=== PATIENT | male | born 1970 | race Caucasian/White ===

== ENCOUNTER 2019-11-03 16:39 | Emergency (ER) | payer OTHER ==
[2019-11-03 17:03] VITALS: RESP 16
[2019-11-03] MEDS ORDERED: LIDOCAINE 1% INJ 10MG/ML (20 ML MDV) SQ ONE (17:09)
[2019-11-03] MEDS ORDERED: DIPH,PERTUS(ACELL)TETVAC-LF 0.5 ML VIAL IM ONE (17:13)
--- NOTE | 2019-11-03 17:46 | XR ---
EXAMINATION TYPE: XR knee complete LT DATE OF EXAM: 11/03/2019 COMPARISON: None HISTORY: Laceration posterior knee TECHNIQUE: Three-view left knee FINDINGS: No acute fractures are evident. There is soft tissue injury of the posterior knee. Joint sp aces are preserved. No radiopaque foreign bodies are evident. IMPRESSION: 1. Soft tissue injury posterior knee. 2. No acute osseous abnormality.
[2019-11-03] MEDS ORDERED: CEPHALEXIN 500MG STARTER PACK 4 CAP BTL PO STA (18:14)
[2019-11-03] MEDS ORDERED: ACET/COD 300 MG/30 MG STARTER PACK 6 TAB BTL PO STA (18:15)
--- NOTE | 2019-11-03 18:16 | ED ---
Wound/Laceration HPI - General Chief Complaint: Wound/Laceration Stated Complaint: Left Leg Laceration Time Seen by Provider: 11/03/19 17:04 Source: patient Mode of arrival: ambulatory Limitations: no limitations - History of Present Illness Initial Comments: 79-year-old male presenting today for chief complaint of left posterior knee laceration. Patient states he found ladder when he fell he states he slid down the ladder cutting his leg on something he is unsure what. Patient denies any head or neck injury injury to the chest abdomen or back. Patient denies any severe pain at the knee joint itself he states he did hit his elbow but is able to fully range or numbness tingling loss of sensation. Denies any significant swelling or laceration. Patient states he does not believe he has any broken bones but is more concerned about laceration of the knee and presented for repair. Remainder review of system negative states his tetanus is not up-to-date - Related Data Previous Rx's Medication Instructions Recorded Cephalexin [Keflex] 500 mg PO Q8HR 5 Days #15 cap 11/03/19 Allergies Allergy/AdvReac Type Severity Reaction Status Date / Time erythromycin base Allergy Unknown Verified 11/03/19 17:02 Childhood Review of Systems ROS Statement: Those systems with pertinent positive or pertinent negative responses have been documented in the HPI. ROS Other: All systems not noted in ROS Statement are negative. Past Medical History Past Medical History: Osteoarthritis (OA) History of Any Multi-Drug Resistant Organisms: None Reported Past Surgical History: No Surgical Hx Reported, Appendectomy, Tonsillectomy Additional Past Surgical History / Comment(s): nasal surgery, Past Psychological History: No Psychological Hx Reported Smoking Status: Current every day smoker Past Alcohol Use History: Rare Past Drug Use History: Marijuana General Exam - General Exam Comments Initial Comments: General: The patient is awake and alert, in no distress, and does not appear acutely ill. Eye: +3mm pupils are equal, round and reactive to light, extra-ocular movements are intact. No nystagmus. There is normal conjunctiva bilaterally. No signs of icterus. Cardiovascular: There is a regular rate and rhythm. No murmur, rub or gallop is appreciated. Respiratory: Lungs are clear to auscultation, respirations are non-labored, breath sounds are equal. No wheezes, stridor, rales, or rhonchi. Musculoskeletal: Normal ROM, no tenderness. Strength 5/5. Sensation intact. Radial pulses equal bilaterally 2+. Neurological: A&O x 3. CN II-XII intact grossly, There are no obvious motor or sensory deficits. Coordination appears grossly intact. Speech is normal. Skin: Skin is warm and dry and no rashes. v shaped laceration of the posterior left knee, there is exposure of fascia but not extension into the fascia, no tendon injury. no vascular injury noted. Patietn has no active bleedidng, no evidence of foreign body. Full ROM of the knee without limitation, no hematomas. Psychiatric: Cooperative, appropriate mood & affect, normal judgment. Limitations: no limitations Course Vital Signs 11/03/19 11/03/19 16:59 18:45 Temperature 98.8 F 98.4 F Pulse Rate 93 82 Respiratory 16 16 Rate Blood Pressure 115/74 121/72 O2 Sat by Pulse 98 99 Oximetry Procedures - Laceration Laceration #1 Consent Obtained: verbal consent Indication: laceration Site: lower extremity Size (cm): 7 Description: irregular, clean Depth: simple, single layer Anesthetic Used: lidocaine 1% Anesthesia Technique: local infiltration Amount (mls): 2 Pre-repair: wound explored, irrigated extensively, deep structures intact Size of Sutures: 4-0 Number of Sutures: 12 Technique: simple, interrupted Patient Tolerated Procedure: well, no complications Medical Decision Making - Medical Decision Making 49yo male presenting for leg laceration, denies additional injuries. Patient laceration repaired after extension irrigation/exploration and xr. No FB noted, no deep tissue injury noted. tdap updated. She neurovascularly intact. Discharged with oral antibiotics and pcp f/u. Return and suture care discussed. Case discussed with Dr. saldaña Disposition Clinical Impression: Laceration of left leg Disposition: HOME SELF-CARE Condition: Good Additional Instructions: Please use medication as discussed. Please follow-up with family doctor in the next 2 days, recommend monitoring for infection, care as discussed, avoid submerging area in water (no pools, hottubs, baths ect), return for suture removal in 7-10 days. Please return to emergency room if the symptoms increase or worsen or for any other concerns. Prescriptions: Cephalexin [Keflex] 500 mg PO Q8HR 5 Days #15 cap Is patient prescribed a controlled substance at d/c from ED?: No Referrals: Domo Luu MD [Primary Care Provider] - 1-2 days Time of Disposition: 18:16
[2019-11-03] MEDS ORDERED: BACITRACIN OINT 1 EACH PACKET TOPICAL ONE (18:25)
[2019-11-03 18:49] VITALS: BP 121/72; PULSE 82; TEMP 98.4
== END 2019-11-03 18:45 | disposition home or self-care (01) ==
LOC: EC 16:39
DX: S81.012A Laceration without foreign body, left knee, initial encounter (principal); F17.200 Nicotine dependence, unspecified, uncomplicated; Z23 Encounter for immunization; Z88.1 Allergy status to other antibiotic agents; W11.XXXA Fall on and from ladder, initial encounter
CPT/HCPCS: 12002; 90471; 90715; 99283

== ENCOUNTER 2019-12-31 20:28 | Emergency (ER) | payer OTHER ==
[2019-12-31 20:34] VITALS: BP 121/70; RESP 18; TEMP 98.1
[2019-12-31 20:41] VITALS: PULSE 103
[2019-12-31] MEDS ORDERED: AMOXIC-POT CLAV 875MG STARTER PACK 2 TAB BTL PO STA (20:46)
[2019-12-31] MEDS ORDERED: ACET/COD 300 MG/30 MG STARTER PACK 6 TAB BTL PO STA (20:47)
--- NOTE | 2019-12-31 20:48 | ED ---
ENT HPI - General Chief complaint: Dental/Oral Stated complaint: Tooth ache Time Seen by Provider: 12/31/19 20:37 Source: patient Mode of arrival: ambulatory Limitations: no limitations - History of Present Illness Initial comments: 49-year-old male who denies past medical history presenting today for chief complaint of left lower dental pain. Patient states he has had left lower dental pain for the past few days he states he is a schedule appointment in 3 days with his dentist and has antibiotics prescribed at the pharmacy for tomorrow. Patient states he wanted begin the antibiotics tonight and have something for pain relief. He denies any swelling blows tongue difficulty breathing swelling or tolerating oral secretions .Denies fevers chills or hx of valvular disease. Denies chest pain SOB or additional complaints. Patient appears well pleasant on arrival. No signs of distress. Appears nontoxic. - Related Data Previous Rx's Medication Instructions Recorded Cephalexin [Keflex] 500 mg PO Q8HR 5 Days #15 cap 11/03/19 Amoxicillin/Potassium Clav 1 tab PO Q12HR 7 Days #14 tab 12/31/19 [Augmentin 875-125 Tablet] Allergies Allergy/AdvReac Type Severity Reaction Status Date / Time erythromycin base Allergy Unknown Verified 12/31/19 20:34 Childhood Review of Systems ROS Statement: Those systems with pertinent positive or pertinent negative responses have been documented in the HPI. ROS Other: All systems not noted in ROS Statement are negative. Past Medical History Past Medical History: Osteoarthritis (OA) History of Any Multi-Drug Resistant Organisms: None Reported Past Surgical History: No Surgical Hx Reported, Appendectomy, Tonsillectomy Additional Past Surgical History / Comment(s): nasal surgery, Past Psychological History: ADD/ADHD, Anxiety Smoking Status: Current every day smoker Past Alcohol Use History: Rare Past Drug Use History: Marijuana General Exam - General Exam Comments Initial Comments: General: The patient is awake and alert, in no distress, and does not appear acutely ill. Eye: Pupils are equal, round and reactive to light, extra-ocular movements are intact. No nystagmus. There is normal conjunctiva bilaterally. No signs of icterus. Ears, nose, mouth and throat: There are moist mucous membranes and no oral lesions. Broken tooth #20, tender to touch surrounding redness without fluctuance. No swelling below the tongue or below the angle of the mandible tolerate oral secretions no tripoding or drooling Neck: The neck is supple, there is no tenderness or JVD. Cardiovascular: There is a regular rate and rhythm. No murmur, rub or gallop is appreciated. Respiratory: Lungs are clear to auscultation, respirations are non-labored, breath sounds are equal. No wheezes, stridor, rales, or rhonchi. Musculoskeletal: Normal ROM, no tenderness. Strength 5/5. Sensation intact. Pulses equal bilaterally 2+. Neurological: A&O x 3. CN II-XII intact grossly, There are no obvious motor or sensory deficits. Coordination appears grossly intact. Speech is normal. Skin: Skin is warm and dry and no rashes or lesions are noted. Psychiatric: Cooperative, appropriate mood & affect, normal judgment. Limitations: no limitations Course Vital Signs 12/31/19 12/31/19 20:31 20:41 Temperature 98.1 F Pulse Rate 45 L 103 H Respiratory 18 Rate Blood Pressure 121/70 O2 Sat by Pulse 94 L Oximetry Medical Decision Making - Medical Decision Making No signs of Duke's angina patient appears nontoxic. Patient presenting for one dose of antibiotics. Provided Augmentin. discussed return parameters, safe use of tylenol #3. Patient discharged appearing well agreeable to care plan. f/u in 3 days. Disposition Clinical Impression: Pain, dental Disposition: HOME SELF-CARE Condition: Good Instructions (If sedation given, give patient instructions): Dental Abscess (ED), Toothache (ED) Additional Instructions: Please use medication as discussed. Please follow-up with family doctor in the next 2 days.. Please return to emergency room if the symptoms increase or worsen or for any other concerns. Prescriptions: Amoxicillin/Potassium Clav [Augmentin 875-125 Tablet] 1 tab PO Q12HR 7 Days #14 tab Is patient prescribed a controlled substance at d/c from ED?: No Referrals: Domo Luu MD [Primary Care Provider] - 1-2 days Time of Disposition: 20:48
== END 2019-12-31 21:07 | disposition home or self-care (01) ==
LOC: EC 20:28
DX: K08.89 Other specified disorders of teeth and supporting structures (principal); F17.200 Nicotine dependence, unspecified, uncomplicated; Z88.1 Allergy status to other antibiotic agents
CPT/HCPCS: 99282

== ENCOUNTER → 2024-06-22 | Outpatient (CLI) | payer BC ==
--- NOTE | 2024-06-22 14:05 | CT ---
EXAMINATION TYPE: CT abdomen pelvis w con DATE OF EXAM: 06/22/2024 COMPARISON: None CLINICAL INDICATION: Male, 54 years old with history of R10.9 LEFT SIDE ABD PAIN DIVERTICULITISI; [facility] , Left side abdominal pain. Possible diverticulitis. TECHNIQUE: Performed and with IV Contrast, patient injected with 100 ml mL of Isovue 300. CT DLP: 464.[address] CTDI: mGy Automated exposure control for dose reduction was used. FINDINGS: The lung bases are clear. The gallbladder is normal without distention, wall thickening, pericholecystic fluid or gallstones. T here is no biliary ductal dilatation. In the medial segment of left lobe of liver, there is a 12.7 mm hypodensity which is not well defined and is not a simple cyst. Statistically it most likely represents a benign hemangioma but further wo rkup is warranted CT with three-phase imaging of the liver or MRI of the abdomen. There is no solid renal mass or hydronephrosis and there is homogeneous contrast enhancement of the r enal parenchyma. The caliber the abdominal aorta is normal is no retroperitoneal adenopathy or hemorr hakan. There is mild focal dilatation of the sigmoid colon with ill definition of the wall and pericolic fat infiltration consistent with acute sigmoid diverticulitis. There is no abscess, free intraperitoneal air or fluid. No bowel obstruction. The remaining bowel is normal. No pelvic mass, free fluid, abscess or adenopathy. The osseous structures and soft tissues are intact. IMPRESSION: 1. Uncomplicated mild to moderate sigmoid diverticulitis 2. 12.7 mm hypodense solid lesion in the left lobe of the liver. Statistically most likely represents a benign hemangioma but cannot be characterized with this technique. Further evaluation with CT live r with three-phase contrast imaging or MRI of the liver is recommended. [facility], , 06/22/2024 2:02 PM
[2024-06-22 18:29] LABS: Basophils # (A) 0.06 X 10*3/uL (0.00-0.10); Basophils % (A) 0.5 %; Eosinophils # (A) 0.14 X 10*3/uL (0.04-0.35); Eosinophils % (A) 1.2 %; HCT 46.3 % (39.6-50.0); HGB 14.5 g/dL (13.0-17.0); Lymphocytes # (A) 2.04 X 10*3/uL (0.90-5.00); MCH 25.8 pg (27.0-32.0); MCHC 31.3 g/dL (32.0-37.0); MCV 82.2 FL (80.0-97.0); Mean Platelet Volume 9.7 FL (9.5-12.2); Monocytes # (A) 0.95 X 10*3/uL (0.20-1.00); Monocytes % (A) 7.9 %; NRBC Per 100 WBC 0 X 10*3/uL (0.00-0.01); Neutrophils # (A) 8.77 X 10*3/uL (1.80-7.70); Neutrophils % (A) 73.1 %; Platelet Count 286 X 10*3/uL (140-440); RBC 5.63 X 10*6/uL (4.40-5.60)
[2024-06-22 19:02] LABS: ALT 32 U/L (10-49); AST 44 U/L (14-35); Albumin 4.6 g/dL (3.8-4.9); Alkaline Phosphatase 105 U/L (41-126); Amylase 50 U/L (23-121); Blood Urea Nitrogen 16.8 mg/dL (9.0-27.0); Calcium 10.8 mg/dL (8.7-10.3); Carbon Dioxide 26.1 mmol/L (21.6-31.8); Chloride 98 mmol/L (96-109); Globulin 2.3 g/dL (1.6-3.3); Glucose 102 mg/dL (70-110); Lipase 45 U/L (14-60); Potassium 4.5 mmol/L (3.5-5.5); Sodium 137 mmol/L (135-145); Total Protein 6.9 g/dL (6.2-8.2)
== END | disposition home or self-care (01) ==
LOC: RADCTMAIN 11:47
PROVIDERS: ATTEND Family Medicine
DX: K57.32 Diverticulitis of large intestine without perforation or abscess without bleeding (principal); K76.9 Liver disease, unspecified
CPT/HCPCS: 80053; 82150; 83690; 85025; 74177; Q9967

== ENCOUNTER → 2024-07-12 | Outpatient (CLI) | payer BC ==
--- NOTE | 2024-07-12 21:34 | MR ---
EXAMINATION TYPE: MR liver wo/w con DATE OF EXAM: 07/12/2024 5:32 PM INDICATION: Patient age:Male; 54 years old; Reason for study: D18.01 HEMANGIOMA OF SKIN AND SUBCUTANEOUS TISSUE; [facility]. COMPARISON: CT abdomen and pelvis 06/22/2024 TECHNIQUE: Multiplanar multi-sequence imaging was performed without and with IV contrast. The patie nt was given 7 ccs of Gadobutrol intravenously and dynamic imaging was performed. Post IV contrast wade btraction images were also submitted for review. FINDINGS: LOWER CHEST: No gross irregularity. ABDOMEN Liver: Noncirrhotic morphology. No drop out of signal to suggest fatty infiltration. Segment 4 thin w all T2 hyperintense 1.3 cm ovoid lesion corresponding to CT finding (series 601, image 34). There is intrinsic T1 hyperintensity on T1 imaging. This lesion demonstrates thin peripheral wall enhancement without central enhancement on subtraction imaging. No enhancing mural nodularity or septations. No w ashout. Demonstrates restricted diffusion. Gallbladder and Bile ducts: No biliary duct dilatation. Contracted gallbladder without internal filli ng defects to suggest cholelithiasis. Pancreas: Unremarkable. Spleen: Unremarkable. Adrenal glands: Unremarkable. Kidneys: No hydronephrosis. Few subcentimeter bilateral renal cortical T2 hyperintense nonenhancing c ysts. No follow up recommended. Stomach and Bowel: Unremarkable as visualized. Peritoneum: No evidence of pneumoperitoneum, free fluid, or adenopathy. Vasculature: Unremarkable. No aortic aneurysm. Abdominal wall: Unremarkable. Musculoskeletal: The osseous structures appear intact. Multilevel degenerative disc disease of the lo wer lumbar spine. IMPRESSION: Cystic lesion within the left hepatic lobe corresponding to CT. This demonstrates intrinsic T1 hyperi ntensity with thin peripheral wall enhancement. No central enhancement. This is favored to represent a proteinaceous/hemorrhagic cyst. [facility], , 07/12/2024 9:31 PM
== END | disposition home or self-care (01) ==
LOC: RADMRIMAIN 16:40
PROVIDERS: ATTEND Family Medicine
DX: D18.01 Hemangioma of skin and subcutaneous tissue (principal); K76.89 Other specified diseases of liver
CPT/HCPCS: 74183; A9585